=== PATIENT | male | born 1970 | race Caucasian/White ===

== ENCOUNTER 2017-11-12 15:47 | Emergency (ER) | END 2017-11-12 16:41 | disposition left against medical advice (07) ==

== ENCOUNTER 2017-11-21 | Inpatient (IN) | END 2017-11-21 20:45 | disposition left against medical advice (07) | DRG 313 ==

== ENCOUNTER 2017-11-23 22:55 | Emergency (ER) | END 2017-11-24 01:00 | disposition left against medical advice (07) ==